=== PATIENT | male | born 1960 | race Caucasian/White ===

== ENCOUNTER 2018-09-25 15:06 | Emergency (ER) | payer OTHER ==
[~2018-09-25] VITALS: Ht 172.7 cm; Wt 90.4 kg
[~2018-09-25 15:06] MED LIST: IBUP-1542 PO
[2018-09-25 15:32] VITALS: BP 134/64; PULSE 78; RESP 16; Ht 172.7 cm; Wt 90.4 kg
[2018-09-25] MEDS ORDERED: IBUPROFEN 600 MG TAB PO ONE (16:00)
--- NOTE | 2018-09-25 16:32 | ERD ---
ER Documentation Chief Complaint Chief Complaint right wrist pain s/p fall x 1 week, swelling noted HPI 57-year-old male presents with complaint of right wrist pain and swelling x1 week. States to have fallen while at work onto his right arm and hand. He has been using the affected extremity freely since the incident. At this time patient denies actual pain but expresses concern over continued and worsening swelling over the past week. Patient admits to intermittently icing the area but has not tried pain medication or anti-inflammatories. He admits to pain only with range of motion of the right small digit, but is otherwise able to freely move all remaining digits as well as the wrist the elbow and the shoulder. Denies numbness, tingling, warmth. No fever, chills. His history of diabetes, cancer, IVDA. ROS All systems reviewed and are negative except as per history of present illness. Medications Home Meds Active Scripts Ibuprofen* (Motrin*) 600 Mg Tab, 600 MG PO Q6H PRN for PAIN AND OR ELEVATED TEMP, #30 TAB Prov:JOSE SANTANA PA-C 09/25/18 Allergies Allergies: Coded Allergies: No Known Allergy (Unverified , 09/25/18) PMhx/Soc Medical and Surgical Hx: pt denies Medical Hx, pt denies Surgical Hx FmHx Family History: No diabetes, No coronary disease, No other Physical Exam Vitals Vital Signs Date Temp Pulse Resp B/P (MAP) Pulse Ox O2 O2 Flow FiO2 Time Delivery Rate 09/25/18 98.5 78 16 134/64 99 15:32 (87) Physical Exam Constitutional: Well developed. Well nourished. No acute distress Head/Eyes: Atraumatic. Normocephalic. Neck: Supple. No lymphadenopathy Cardiovascular: Regular rate and rhythm. No murmurs, rubs, or gallops. Respiratory: No respiratory distress. Normal breath sounds. No wheezes, rales, or rhonchi. Extremities: No edema, Full ROM. Pain with palpation at the MCP of the right fifth digit. No scaphoid tenderness. Visible edema surrounding the MCP, no erythema, warmth. Full passive ROM of the affected digit elicits pain. Radial pulse 2+. Cap refill less than 2 seconds. Sensation intact to radial, ulnar, medial distribution. Skin: Dry. No rashes. Warm Neurological: Alert and oriented X 3. Normal speech Results 24 hrs Current Medications Medications Dose Sig/Juan Start Time Status Last (Trade) Ordered Route PRN Stop Time Admin Dose Reason Admin Ibuprofen 600 mg ONCE ONCE 09/25/18 DC 09/25/18 (Motrin) PO 16:00 15:57 09/25/18 16:01 Procedures/MDM PROCEDURE: XR Hand. FINDINGS: Bones: There is a punctate bony density adjacent to the ulnar side of the base of the fifth metacarpal which may reflect a tiny avulsion fracture. Joints: Intact. Soft tissues: Soft tissue edema over the ulnar side of the hand is observed. IMPRESSION: Punctate bony density adjacent to the ulnar side of the base of the fifth metacarpal. Given the surrounding soft tissue edema, imaging findings may reflect a tiny avulsed fracture fragment. MDM: This is an otherwise healthy 57-year-old male who presents for evaluation of right hand pain and swelling x1 week. Patient NVI. The physical examination reveals pain and erythema at the MCP of the right fifth digit. X-ray imaging revealed possible avulsion fracture at the base of the right fifth digit, consistent with physical exam findings. Patient placed in ulnar gutter splint to immobilize digit, Motrin administered in ED. patient advised to follow-up with PCP and/or orthopedics within the next 1-2 days for further follow-up and evaluation. I have counseled the patient regarding RICE, and prescription for M otrin given. Patient NVI after splint placement. Counseled regarding signs and symptoms of compartment syndrome and advised to present to the ED if symptoms develop and/or if new or worsening symptoms persist. At this time patient stable for outpatient management will be discharged with close follow-up. Verbal understanding and agreement to treatment plan expressed. All questions addressed and answered. Departure Diagnosis: Primary Impression: Avulsion fracture Additional Impression: Hand injury Encounter type: initial encounter Laterality: right Qualified Codes: S69.91XA - Unspecified injury of right wrist, hand and finger(s), initial encounter Condition: Stable Patient Instructions: Treating Hand Fractures, Splint Care [facility] Usted se riley hecho un examen mdico de control que le indica que no est en ivelisse condicin que requiera tratamiento urgente en el Departamento de Emergencia. Un estudio ms profundo y el tratamiento de aguilar condicin pueden esperar sin ningn riesgo hasta que usted sea atendida/o en el consultorio de aguilar mdico o ivelisse clnica. Es responsabilidad suya arreglar ivelisse thomas para el seguimiento del naveed. MANEJO DE CONDICIONES NO URGENTES EN EL FUTURO 1) Si usted tiene un mdico de atencin primaria: Usted debera llamar a aguilar mdico de atencin primaria antes de venir al departamento de emergencia. Despus de las horas de consultorio, aguilar doctor o aguilar asociado/a est disponible por telfono. El mdico o enfermero de alejo en el servicio telefnico puede asesorarle por rafa medio para atender el problema, o naveed contrario se puede programar ivelisse thomas. 2) Si usted no tiene un mdico de atencin primaria: Llame al mdico o clnica de referencia que aparece abajo miranda las horas de consultorio para hacer ivelisse thomas para que le vean. CLINICAS: [facility] [phone] [id number] [facility] [facility] [phone] [address] [facility]. [facility] [phone] [address] [facility]. [facility] [phone] [facility] [facility]. [facility] [phone] [id number] [facility] [phone] [address] [facility]. [facility] Urgent Care 7 a.m.- 11 p.m. Every Day of the Week NO APPOINTMENT OR AUTHORIZATION NEEDED Additional Instructions: You have been diagnosed with an avulsion fracture today and placed in a splint. It is recommended you follow-up with your PCP and Orthopedics within the next few days not to exceed 2 weeks. Please return to the ED immediately if symptoms worsen. JOSE SANTANA PA-C 26, 2019 16:32
== END 2018-09-25 16:53 | disposition home or self-care (01) ==
LOC: FTE 15:06
DX: S62.316B Displaced fracture of base of fifth metacarpal bone, right hand, initial encounter for open fracture (principal); W18.39XA Other fall on same level, initial encounter; Y92.89 Other specified places as the place of occurrence of the external cause
CPT/HCPCS: 29125; 73130; Z7502; Z7610